=== PATIENT | female | born 1950 | race Caucasian/White ===

== ENCOUNTER 2018-03-01 22:18 | Emergency (ER) | payer MEDICARE, OTHER ==
[~2018-03-01] VITALS: Ht 162.6 cm; Wt 82.2 kg
[2018-03-01] MEDS ORDERED: ATOR20TA9 PO (23:00)
[2018-03-01] MEDS ORDERED: DIAZEPAM 5 MG TABLET PO ONE (23:30)
[2018-03-01] MEDS ORDERED: BUPIVACAINE/PF-EPI 0.5% 1:200K INFIL ONE (23:30)
[2018-03-01] MEDS ORDERED: TRIAMCINOLONE ACETONIDE 40 MG/ML, 1ML IM ONE (23:30)
[2018-03-01] MEDS ORDERED: SODIUM CHLORIDE FLUSH 10ML SYR IVF ONE (23:30)
[2018-03-01] MEDS ORDERED: SODIUM CHLORIDE 0.9% 1,000ML IVBOLUS ONE (23:30)
[2018-03-01] MEDS ORDERED: ONDANSETRON 2MG/ML, 2ML IVPush ONE (23:30)
[2018-03-01] MEDS ORDERED: KETOROLAC 30 MG/1 ML IVPush ONE (23:30)
[2018-03-01 23:35] LABS: BASOPHILS # (AUTO) 0.01 x10^3/uL (0-0.1); BASOPHILS % (AUTO) 0 % (0-1); EOSINOPHILS % (AUTO) 0 % (1-7); LYMPHOCYTES # (AUTO) 0.76 x10^3/uL (1-3.4); LYMPHOCYTES % (AUTO) 5 % (22-44); MD NO; MEAN CORPUSCULAR HEMOGLOBIN 30.9 pg (27.0-34.8); MEAN CORPUSCULAR HGB CONC 34.1 g/dL (32.4-35.8); MEAN CORPUSCULAR VOLUME 90.7 fL (80-100); MONOCYTES # (AUTO) 0.66 x10^3/uL (0.2-0.8); MONOCYTES % (AUTO) 5 % (2-9); NEUTROPHILS # (AUTO) 12.75 x10^3/uL (1.8-6.8); NEUTROPHILS % (AUTO) 90 % (42-75); PLATELET COUNT 224 x10^3/uL (130-400); RED BLOOD COUNT 4.79 x10^6/uL (3.82-5.3); RED CELL DISTRIBUTION WIDTH 13.8 % (9.6-15.2)
[2018-03-01 23:47] LABS: ALANINE AMINOTRANSFERASE 81 U/L (12-78); ANION GAP 7 mmol/L (5-15); CALCIUM 9.2 mg/dL (8.5-10.1); CHLORIDE 101 mmol/L (98-107); CREATININE 1.08 mg/dL (0.55-1.02)
[2018-03-01 23:49] LABS: ALKALINE PHOSPHATASE 132 U/L (45-117); BILIRUBIN,TOTAL 0.8 mg/dL (0.2-1.0); TOTAL PROTEIN 7.8 g/dL (6.4-8.2)
[2018-03-01] MEDS ORDERED: DIAZEPAM 5 MG TABLET ONE (23:57)
[2018-03-01] MEDS ORDERED: KETOROLAC 30 MG/1 ML ONE (23:58)
[2018-03-01] MEDS ORDERED: ONDANSETRON 2MG/ML, 2ML ONE (23:58)
[2018-03-01] MEDS ORDERED: BUPIVACAINE 0.25% ONE (23:59)
[2018-03-02 00:30] LABS: CULTURE INDICATED? YES; MICROSCOPIC INDICATED
[2018-03-02] MEDS ORDERED: LOSA25TA5 PO (00:45)
[2018-03-02] MEDS ORDERED: TAMS-11 PO (00:45)
[2018-03-02] MEDS ORDERED: ATOR10TA9 PO (00:45)
[2018-03-02 02:12] LABS: GLUCOSE, CSF 76 mg/dL (40-80); TOTAL PROTEIN,CSF 42 mg/dL (15-45)
[2018-03-02 02:29] VITALS: BP 134/84
[2018-03-03] MEDS ORDERED: ONDA4TAB7 PO (14:25)
[2018-03-03] MEDS ORDERED: CYCL-259 PO (14:25)
[2018-03-03] MEDS ORDERED: CEFD300C37 PO (14:25)
[2018-03-03] MEDS ORDERED: IBUP-1222 PO (14:25)
[2018-03-08] MEDS ORDERED: DOXY100T PO (17:24)
[2018-03-08] MEDS ORDERED: AMOX1TAB12 PO (17:24)
== END 2018-03-02 02:53 | disposition home or self-care (01) ==
LOC: ED 03-02 02:40
DX: G43.C1 Periodic headache syndromes in child or adult, intractable (principal); M47.892 Other spondylosis, cervical region; N30.00 Acute cystitis without hematuria; R94.5 Abnormal results of liver function studies
CPT/HCPCS: 20552; 36415; 62270; 70450; 80053; 81001; 82945; 84157; 85025; 87070; 87086; 87205; 87252; 89051; 96374; 96375; 99285; J1885; J2405; J7030